=== PATIENT | male | born 2000 | race African-American/Black ===

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

== ENCOUNTER → 2023-06-08 | Emergency (ER) | payer BC ==
--- NOTE | 2023-06-08 00:43 | EDPHYS ---
Physician Documentation [facility] Name: Simon Guo Age: 23 yrs Sex: Male : 2000 Arrival Date: 06/08/2023 Time: 00:00 Bed 11 Private MD: ED Physician Elkin Garza HPI: 06/08 00:42 This 23 yrs old Black Male presents to ER via Ambulatory with complaints of Anal ms3 fissuer. 00:42 23-year-old male with no past medical history presents to the emergency department for ms3 rectal pain with bowel movements that has been ongoing for the last 1 and half weeks. Patient states the pain is a 10/10. Patient states he has not experienced this pain previously. Patient denies fevers, chills, nausea, vomiting, diarrhea, bloody bowel movements.. Historical: - Allergies: 00:42 No Known Allergies; pf1 - PMHx: 00:42 None; pf1 - PSHx: 00:42 None; pf1 - Immunization history:: Adult Immunizations up to date, Client reports having NOT received the Covid vaccine. Last tetanus immunization: < 5 years ago Flu vaccine is up to date. - Social history:: Smoking status: Patient denies any tobacco usage or history of. Patient uses alcohol, occasionally. Patient/guardian denies using street drugs. ROS: 00:42 Constitutional: Negative for fever, and chills. Neck: Negative for injury, pain, and ms3 swelling, Cardiovascular: Negative for chest pain, and palpitations. Respiratory: Negative for shortness of breath, cough, wheezing, and pleuritic chest pain, MS/Extremity: Negative for injury and deformity, 00:42 Abdomen/GI: Positive for rectal pain, 00:42 : Exam: 00:42 Constitutional: This is a well developed, well nourished patient who is awake, alert, ms3 and in no acute distress. Head/Face: Normocephalic, atraumatic. Chest/axilla: Normal chest wall appearance and motion. Nontender with no deformity. Cardiovascular: Regular rate and rhythm with a normal S1 and S2. No gallops, murmurs, or rubs. Normal PMI, no JVD. No pulse deficits. Respiratory: Lungs have equal breath sounds bilaterally, clear to auscultation and percussion. No rales, rhonchi or wheezes noted. No increased work of breathing, no retractions or nasal flaring. Abdomen/GI: Soft, non-tender, with normal bowel sounds. No distension or tympany. No guarding or rebound. No evidence of tenderness throughout. 00:42 : Rectal exam: Rectal tone: normal, Perineal sensation Normal hemorrhoid(s), external, painful, mass, is not appreciated, fissure, is not appreciated, the nurse was present for the exam, Vital Signs: 00:13 BP 132 / 89; Pulse 67; Resp 18; Temp 98.6; Pulse Ox 99% on R/A; Weight 72.57 kg; Height pf1 5 ft. 9 in. ; Pain 0/10; 00:13 Body Mass Index 23.63 (72.57 kg, 175.26 cm) pf1 00:13 Pain Scale: Adult pf1 MDM: 00:39 Patient medically screened. ms3 00:42 Differential diagnosis: hemorrhoids. Data reviewed: vital signs, nurses notes, and as a ms3 result, I will discharge patient. I considered the following discharge prescriptions or medication management in the emergency department Rx given. Counseling: I had a detailed discussion with the patient and/or guardian regarding the historical points, exam findings, and any diagnostic results supporting the discharge/admit diagnosis, the need for outpatient follow up, to return to the emergency department if symptoms worsen or persist or if there are any questions or concerns that arise at home. Special discussion: I discussed with the patient/guardian in detail that at this point there is no indication for admission to the hospital. It is understood, however, that if the symptoms persist or worsen the patient needs to return immediately for re-evaluation. ED course: Discussed physical exam findings with patient. Patient given prescription for Anusol cream and Anusol rectal suppositories. Patient to follow-up with GI and primary care in 2 to 3 days. Patient understands and agrees with plan. All questions were answered. Return precautions discussed include worsening symptoms, or any other concerns. Administered Medications: No medications were administered Disposition Summary: 06/08/23 00:42 Discharge Ordered Notes: Location: Home ms3 Condition: Stable ms3 Diagnosis - Rectal Pain ms3 Followup: ms3 - With: Dano Lara DO - When: 2 - 3 days - Reason: Recheck today's complaints Followup: ms3 - With: Anurag Quintanilla MD - When: 2 - 3 days - Reason: Recheck today's complaints Discharge Instructions: - Discharge Summary Sheet ms3 Forms: - Medication Reconciliation Form ms3 - Thank You Letter ms3 - Antibiotic Education ms3 - Prescription Opioid Use ms3 - Patient Portal Instructions ms3 - Leadership Thank You Letter ms3 - Work release form pf1 Prescriptions: - Anusol-HC 2.5 % Topical cream with perineal applicator - apply 1 application RECTAL route every 8 hours for 3 wks as needed for pain; 30 ms3 gram; Refills: 0, Product Selection Permitted - Anusol-HC 25 mg Rectal Suppository - insert 1 suppository RECTAL route every 12 hours As needed; 20 suppository; ms3 Refills: 0, Product Selection Permitted Signatures: Elkin Garza DO DO ms3 Avani Benz, RN RN pf1
--- NOTE | 2023-06-08 00:43 | ER ---
Nurse's Notes [facility] Name: Simon Guo Age: 23 yrs Sex: Male : 2000 Arrival Date: 06/08/2023 Time: 00:00 Bed 11 Private MD: Diagnosis: Rectal Pain Presentation: 06/08 00:13 Chief complaint: Patient states: rectal pain of 10 when having a bowel movement, onset pf1 1.5 weeks. Patient denies any pain at this time. 00:13 Coronavirus screen: Vaccine status: Patient reports being unvaccinated. Client denies pf1 travel out of the [place] in the last 14 days. At this time, the client does not indicate any symptoms associated with coronavirus-19. Ebola Screen: Patient negative for fever greater than or equal to 101.5 degrees Fahrenheit, and additional compatible Ebola Virus Disease symptoms. Initial Sepsis Screen: Does the patient meet any 2 criteria? No. Patient's initial sepsis screen is negative. Does the patient have a suspected source of infection? No. Patient's initial sepsis screen is negative. Risk Assessment: Do you want to hurt yourself or someone else? Patient reports no desire to harm self or others. 00:13 Method Of Arrival: Ambulatory pf1 00:13 Acuity: LOBITO 4 pf1 Historical: - Allergies: 00:42 No Known Allergies; pf1 - PMHx: 00:42 None; pf1 - PSHx: 00:42 None; pf1 - Immunization history:: Adult Immunizations up to date, Client reports having NOT received the Covid vaccine. Last tetanus immunization: < 5 years ago Flu vaccine is up to date. - Social history:: Smoking status: Patient denies any tobacco usage or history of. Patient uses alcohol, occasionally. Patient/guardian denies using street drugs. Screenin:15 [facility] ED Fall Risk Assessment (Adult) History of falling in the last 3 months, pf1 including since admission No falls in past 3 months (0 pts) Confusion or Disorientation No (0 pts) Intoxicated or Sedated No (0 pts) Impaired Gait No (0 pts) Mobility Assist Device Used No (0 pt) Altered Elimination No (0 pt) Score/Fall Risk Level 0 - 2 = Low Risk Oriented to surroundings, Maintained a safe environment, Educated pt \T\ family on fall prevention, incl call for assistance when getting out of bed, Assessed \T\ reinforced patient's understanding of fall precautions, Provided non-skid footwear, Hourly rounding (assess needs \T\ fall precautionary measures) done, Used ambulatory aids as needed (educated on \T\ assisted with), Used gait belt as appropriate. 00:15 Abuse screen: Denies threats or abuse. Nutritional screening: No deficits noted. pf1 Tuberculosis screening: No symptoms or risk factors identified. Assessment: 00:13 General: Appears in no apparent distress. comfortable, well groomed, well developed, pf1 Behavior is calm, cooperative, appropriate for age, quiet. 00:13 Pain: Complains of pain in rectal pain upon having a bowel movement. Pain currently is pf1 0 out of 10 on a pain scale. at worst was 10 out of 10 on a pain scale. Neuro: No deficits noted. Level of Consciousness is awake, alert, obeys commands, Oriented to person, place, time, situation. Cardiovascular: No deficits noted. Capillary refill < 3 seconds Patient's skin is warm and dry. Respiratory: No deficits noted. Airway is patent Respiratory effort is even, unlabored, Respiratory pattern is regular, symmetrical. GI: Reports Pain is 10 out of 10 on a pain scale. when having a bowel movement. : No deficits noted. No signs and/or symptoms were reported regarding the genitourinary system. EENT: No deficits noted. No signs and/or symptoms were reported regarding the EENT system. Derm: No deficits noted. No signs and/or symptoms reported regarding the dermatologic system. Vital Signs: 00:13 BP 132 / 89; Pulse 67; Resp 18; Temp 98.6; Pulse Ox 99% on R/A; Weight 72.57 kg; Height pf1 5 ft. 9 in. ; Pain 0/10; 00:13 Body Mass Index 23.63 (72.57 kg, 175.26 cm) pf1 00:13 Pain Scale: Adult pf1 ED Course: 00:05 Patient arrived in ED. es 00:08 Elkin Garza DO is Attending Physician. ms3 00:15 Patient has correct armband on for positive identification. Bed in low position. Call pf1 light in reach. 00:15 Arm band placed on left wrist. pf1 00:40 Dano Lara DO is Referral Physician. ms3 00:40 Anurag Quintanilla MD is Referral Physician. ms3 00:42 Triage completed. pf1 01:02 No provider procedures requiring assistance completed. Patient did not have IV access pf1 during this emergency room visit. Administered Medications: No medications were administered Medication: 00:15 VIS not applicable for this client. pf1 Outcome: 00:42 Discharge ordered by . ms3 01:01 Discharged to home ambulatory, pf1 01:01 Condition: stable 01:01 Discharge instructions given to patient, Instructed on discharge instructions, follow up and referral plans. Demonstrated understanding of instructions, follow-up care, medications, Prescriptions given X 2, 01:02 Patient left the ED. pf1 Signatures: Renata Marquez Marcus, DO DO ms3 Avani Benz, RN RN pf1
[2023-06-08 02:14] VITALS: BP 132/89; TEMP 98.6; O2SAT 99
== END ==
LOC: ER
DX: K62.89 Other specified diseases of anus and rectum (principal)
CPT/HCPCS: 99283